=== PATIENT | female | born 2000 | race African-American/Black ===

== ENCOUNTER 2025-04-08 06:52 | Emergency (ER) | payer MEDICAID, SELFPAY ==
[2025-04-08 06:58] VITALS: BP 141/88
[2025-04-08 07:23] LABS: Hematocrit 34.8 % (37.0-47.0); Hemoglobin 10.8 g/dL (12.0-16.0); Mean Corp Hgb Conc. 31.0 g/dL (33.0-37.0); Mean Corpuscular Volume 80.6 fL (81.0-99.0); Nucleated Red Blood Cells % 0 %; Platelet Count 238 10^3/uL (130-400); Red Cell Dist. Width 13.7 % (11.5-14.5)
[2025-04-08 07:46] LABS: ALT (SGPT) 18 U/L (0-35); AST (SGOT) 20 U/L (14-36); Albumin 4.0 g/dl (3.5-5.0); Alkaline Phosphatase 73 U/L (38-126); Blood Urea Nitrogen 10 mg/dl (7-17); Calcium 9.1 mg/dl (8.4-10.2); Carbon Dioxide 25 mmol/L (22-30); Chloride 104 mmol/L (98-107); Glucose 99 mg/dl (70-99); Lipase 167 U/L (23-300); Potassium 4.4 mmol/L (3.5-5.1); Sodium 135 mmol/L (135-145); Total Protein 7.7 g/dl (6.3-8.2); eGFR > 60.00
--- NOTE | 2025-04-08 08:36 | ED.GENMED ---
History of Present Illness
General
Chief Complaint: Problems
Source: patient
Exam Limitations: none
Time Seen by Provider: 04/08/25 07:55
Nursing documentation reviewed up to this point in time: agreed with
History of Present Illness
History of Present Illness:
24-year-old female 2 AB 1 presents for abdominal cramping and thinking she is about 6 weeks . She denies vaginal discharge or bleeding. She had a positive home test on March 23, she went to urgent care on the and
confirmed the positive test. LMP /. Denies cramping at this time but cramps were present in WR/Triage.
Past History
Past History
ED Past Medical History: None
Social History
Tobacco: Non-smoker
Alcohol: None
Personal: Single
Living: with family
Employment: Employed
Review of Systems
Review of Systems
Allergies reviewed?: Yes
All Other Systems: ROS reviewed and negative except as documented in HPI and ROS
Phy Exam
Physical Exam
Physical Exam:
GENERAL: No acute distress. A&Ox3.
CONSTITUTIONAL: Afebrile.
EYES: clear, conjunctivae normal
ENMT: moist mucus membranes, Pharynx nl
RESPIRATORY: Regular respirations, nonlabored, lungs clear.
CARDIOVASCULAR: Regular rate and rhythm, no murmurs, no rubs.
GI: Soft, nontender, normal BS
MUSCULOSKELETAL: Moves with ease. Well perfused.
SKIN: Warm, dry, normal
PSYCH: Normal mood and affect. Well kept, interactive and appropriate
NEUROLOGIC: Awake, alert and oriented. No focal neurological deficits
Course
Orders/Labs/Results
Orders:
Orders
04/08/25 07:14
Beta HCG Quantitative Urgent
Comment: ADD ON
Complete Blood Count/With Diff Urgent
Comprehensive Metabolic Panel Urgent
Lipase Urgent
04/08/25 07:51
Add On- LAB Urgent
Tests Added?: serum HCG quant
04/08/25 08:18
US W Transvaginal Urgent
Reason For Exam: cramping, thinks she's 6 weeks preg
04/08/25 10:25
Type+Screen Urgent
Abnormal Lab Results
04/08/25
07:14
Hgb 10.8 L g/dL
(12.0-16.0)
Hct 34.8 L %
(37.0-47.0)
MCV 80.6 L fL
(81.0-99.0)
MCH 25.0 L pg
(27.0-31.0)
MCHC 31.0 L g/dL
(33.0-37.0)
MPV 10.7 H fL
(7.4-10.4)
04/08/25 07:14
04/08/25 07:14
Vital Signs
Initial and Last Documented VS:
Initial Vital Signs
Temp Pulse Resp BP Pulse Ox
98.2 F 99 16 141/88 98
04/08/25 06:58 04/08/25 06:58 04/08/25 06:58 04/08/25 06:58 04/08/25 06:58
Last Documented Vital Signs
Temp Pulse Resp BP Pulse Ox
98.2 F 92 18 138/80 100
04/08/25 06:58 04/08/25 10:10 04/08/25 10:10 04/08/25 10:10 04/08/25 10:10
Information
Weeks gestation: Weeks: (6)
Location: N/A
MDM/Problems Addressed
Differential Diagnosis Includes:
Cramping in early , threatened , ectopic
MDM/Problems Addressed:
24-year-old female 2 AB 1 presents for abdominal cramping and thinking she is about 6 weeks . She denies vaginal discharge or bleeding. She had a positive home test on March 23, she went to urgent care on the and
confirmed the positive test. LMP 02/26. Denies cramping at this time but cramps were present in WR/Triage.
NAD
CBC, CMP with no clinically significant abnormality
hCG 19824.00 consistent w 7-8 weeks gestation
Ultrasound radiology report read: IMPRESSION:
Approximate 5 week and 6 days size structure in the uterus likely representing a gestational sac without definitive pole and without cardiac activity. Please see above comments. Findings could represent an early viable intrauterine
gestation which is not as yet identifiable. Suggest correlation with serial beta-hCG levels and/or short-term follow-up ultrasound to confirm viability.
Although not identified, ectopic cannot be excluded on the basis of this study.
Consulted [employer] Dr. Gongora who states she needs an ultrasound follow-up and she will inform her office staff that the patient will be calling tomorrow.
Patient has no ROUTE INSPECTOR and is agreeable to this follow-up.
Ultrasound results discussed with patient and she was given copy of the results. All questions answered.
*Pulse Oximetry
SaO2: 98
Oxygen Mode of Delivery: Room air
Patient hypoxic: not evaluated
*Critical Care Note
Total Time (30-74mins, 75-104mins- exclusive of procedures): Not Applicable
ED Attending Note
-
Portions of this chart may have been created with voice recognition software.� Occasional wrong word or��sound alike� substitutions may have occurred due to the inherent limitations of voice recognition software.
Discharge Plan
Departure
Patient Disposition: Home (Routine Discharge)
Date of Disposition: 04/08/25
Time of Disposition: 10:28
Patient with high blood pressure during this ER visit?: No
Condition: Good
Discharge Problem:
Abdominal pain in early
Instructions: Threatened Miscarriage (DC)
Referrals:
NONE,* [Family Provider, Internal Medicine]
Fransisca,Kait Vilas, DO [Active, Gynecology] - Tomorrow
Activity Restrictions/Additional Instructions:
As we discussed, call Dr. Gongora's office tomorrow morning to make an appointment. She will contact her office personnel to expect your call and will set you up for a repeat ultrasound.
Interventions
Interventions:
*Risk Screen - Suicide Last Done: 04/08/25 06:58
*General Assessment Last Done: 04/08/25 08:39
*Neglect/Abuse Screening Last Done: 04/08/25 06:58
*ED- Fall Risk Assessment Last Done: 04/08/25 08:39
*ED COVID-19 Vaccine History Last Done: 04/08/25 08:39
*ED Influenza Vaccine History Last Done: 04/08/25 08:39
*Nursing Disposition Last Done: 04/08/25 11:30
ED-Female Genitourinary Assessment Last Done: 04/08/25 08:39
Discharge Date and Time
Discharge Date/Time: 04/08/25 10:40
Print Language: MALIAN
[2025-04-08 08:39] VITALS: BMI 38.6
[2025-04-08 09:23] LABS: Beta HCG Quantitative 15299.00 mIU/ml
[2025-04-08 10:10] VITALS: BP 138/80
--- NOTE | 2025-04-08 11:29 | EDRN ---
Discharge instructions given to patient by ASH Solis
== END 2025-04-08 10:40 | disposition home or self-care (01) ==
LOC: EMR 06:52
PROVIDERS: EMERGENCY PHYSICIAN Emergency Medicine
DX: O26.891 Other specified pregnancy related conditions, first trimester (principal); R10.9 Unspecified abdominal pain; Z3A.01 Less than 8 weeks gestation of pregnancy
CPT/HCPCS: 99284; 76801; 76817; 80053; 83690; 84702; 85025; 86850; 86900; 86901

== ENCOUNTER → 2025-06-13 11:19 | Outpatient (REF) | payer MEDICAID, SELFPAY | LOC: RAD 11:19 | PROVIDERS: ATTENDING PHYSICIAN Obstetrics & Gynecology | DX: O36.80X0 Pregnancy with inconclusive fetal viability, not applicable or unspecified (principal) | CPT/HCPCS: 76805 ==